=== PATIENT | male | born 1950 ===

== ENCOUNTER 2024-08-04 10:00 | Outpatient (RCR) | payer MEDICARE, SELFPAY ==
[2024-05-09 15:58] VITALS: PULSE 63
== END 2024-08-04 10:50 | disposition home or self-care (01) ==
LOC: ANHCPREHAB 10:00
PROVIDERS: PCP Internal Medicine Interventional Cardiology; Visit Provider Internal Medicine Interventional Cardiology
DX: Z98.61 Coronary angioplasty status (principal)
CPT/HCPCS: 93798